=== PATIENT | female | born 1980 | race Hispanic/Latino ===

== ENCOUNTER 2022-07-18 20:24 | Inpatient (IN) | payer OTHER, SELFPAY ==
--- OUTSIDE RECORDS SUMMARY | 2022-07-18 20:26 | XMS REPORT | Continuity of Care Document ---
:1980 Author Organization [facility] t Address [address] [place] [address] Care Team Providers Name Role Phone PatienceRamandeep Jade Attending Clinician Unavailable Adelita Moran Attending Clinician Unavailable Problems This patient has no known problems. Allergies, Adverse Reactions, Alerts This patient has no known allergies or adverse reactions. Medications This patient has no known medications. Procedures This patient has no known procedures. Encounters Start End Encounter Admission Attending Care Care Encounter Source Date/Time Date/Time Type Type Clinicians Facility Department ID 2021-12-26 Outpatient Ramandeep Morin STLMLC STLC [id number] Common 13:24:20 [id number] [facility] 2021-12-26 Outpatient Ramandeep Morin STLC STLC [id number] 2 Common 12:31:34 [id number] [facility] 2021-12-26 Outpatient Dean, STLMLC STLMLC [id number] Common 12:30:24 Adelita [id number] [facility] 2021-12-26 Outpatient Dean, STLMLC STLMLC [id number] Common 12:05:52 Adelita [id number] [facility] 2021-12-26 Outpatient Dean, STLMLC STLMLC [id number] Common 12:05:11 Adelita [id number] [facility] 2021-12-26 Outpatient Dean, STLMLC STLC [id number] Common 12:02:54 Adelita [id number] [facility] 2021-12-26 Outpatient Dean, STLMLC STLMLC [id number] Common 12:01:11 Adelita [id number] [facility] 2021-12-26 Outpatient Dean, STLMLC STLMLC [id number] Common 11:59:50 Adelita [id number] [facility] 2021-12-26 Outpatient Dean, STLMLC STLMLC [id number] Common 11:58:53 Adelita [id number] [facility] 2021-12-26 Outpatient Dean, STLMLC STLMLC [id number] Common 11:56:52 Adelita [id number] [facility] 2021-12-26 Outpatient Dean, STLMLC STLMLC [id number] Common 11:56:23 Adelita [id number] [facility] 2021-12-26 Outpatient Dean, STLMLC STLMLC [id number] Common 11:46:57 Adelita [id number] [facility] 2021-12-26 Outpatient Dean, STLMLC STLMLC [id number] Common 11:46:21 Adelita [id number] [facility] 2021-07-09 2021-07-09 Outpatient STLMLC STLMLC [id number] Common 00:00:00 00:00:00 [facility] 2021-06-11 2021-06-11 Outpatient STLMLC STLMLC [id number] Common 00:00:00 00:00:00 [facility] 2021-01-11 2021-01-11 Outpatient STLMLC STLMLC [id number] Common 00:00:00 00:00:00 [facility] 2020-09-22 2020-09-22 Outpatient STLMLC STLMLC [id number] Common 00:00:00 00:00:00 [facility] 2020-09-22 2020-09-22 Outpatient STLMLC STLMLC [id number] Common 00:00:00 00:00:00 [facility] 2020-09-19 2020-09-19 Outpatient STLMLC STLMLC [id number] Common 00:00:00 00:00:00 [facility] 2020-08-18 2020-08-18 Outpatient Yecenia Witt [id number] Common 10:28:00 10:28:00 t [facility] [address] [facility] 2020-08-18 2020-08-18 Outpatient Yecenia Witt [id number] Common 10:14:00 10:14:[address] [facility] [address] [facility] [address] [facility] Results This patient has no known results.
[2022-07-18] MEDS ORDERED: NA CHLORIDE 0.9% 500 ML ONE (21:02)
[2022-07-18] MEDS ORDERED: DEXTROSE 10%-WATER 500 ML IV ONE (21:29)
[2022-07-18 21:31] LABS: Absolute Lymphocytes (CBC) 0.9 K/uL (0.7-4.9); Hematocrit 39.9 % (36.0-45.0); Lymphocytes % 14.5 % (15.3-44.8); MCV 86.1 fL (80-100); MPV 10.4 fL (7.6-11.3); RBC Red Blood Cell Count 4.63 M/uL (3.86-4.86)
[2022-07-18] MEDS ORDERED: HYDROCORTISONE SUC 100 MG INJ ONE (21:39)
[2022-07-18 21:53] LABS: Albumin 1.8 g/dL (3.4-5.0); Bilirubin Total 0.2 mg/dL (0.2-1.0); Potassium 4.8 mmol/L (3.5-5.1); Protein, Total 7.1 g/dL (6.4-8.2)
[2022-07-18 21:55] LABS: Protime INR 0.92
[2022-07-18 22:06] LABS: Thyroid Stimulating Hormone 5.08 uIU/mL (0.360-3.740)
--- NOTE | 2022-07-18 22:14 | ER ---
Nurse's Notes [facility] Name: Mirian Castro Age: 41 yrs Sex: Female : 1980 Arrival Date: 07/18/2022 Time: 20:33 Bed 8 Private MD: Diagnosis: Acute kidney failure, unspecified;Hypothermia, initial encounter;Altered mental status, unspecified;SARS-associated coronavirus as the cause of diseases classified elsewhere;Acidosis;Hypoglycemia, unspecified Presentation: 07/18 20:33 Chief complaint: EMS states: Patient was found unconscious on scene, FSBS 25. Last time aa9 family recalls her being awake was 0930 today "she was sleeping all day" family states. Family states," She ate breakfast then took 30 U insulin, Has not taken prescribed Lasix in one month.". Coronavirus screen: Vaccine status: Patient reports receiving the 2nd dose of the covid vaccine. Ebola Screen: No symptoms or risks identified at this time. Initial Sepsis Screen: Does the patient meet any 2 criteria? Temp <36.0*C (96.8*F)) or > 38.3*C (100.9*F). Yes Does the patient have a suspected source of infection? Yes:. Risk Assessment: Do you want to hurt yourself or someone else? Patient reports no desire to harm self or others. Onset of symptoms was July 18, 2022 at 09:30. Care prior to arrival: Medication(s) given: 250 ml D10 IV initiated. 20 GA, in the right hand. 20:33 Method Of Arrival: EMS: [facility] aa9 20:33 Acuity: NATALIIA 2 aa9 Triage Assessment: 20:47 General: Appears uncomfortable, unkempt, Behavior is quiet, shaking. Reports chills aa9 for. Pain: Denies pain. Cardiovascular: Reports diaphoresis, "IM cold" skin is cold and clammy upon palpation. Edema is 2+ to left midcalf, left ankle, left foot, left toes, right midcalf, right ankle, right foot and right toes. 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 - Family history:: not pertinent. - Social history:: Smoking status: Patient denies any tobacco usage or history of. - Hospitalizations: : No recent hospitalization is reported. Screenin:31 Abuse screen: Denies threats or abuse. Denies injuries from another. Nutritional aa9 screening: No deficits noted. Tuberculosis screening: No symptoms or risk factors identified. Fall Risk None identified. Assessment: 20:33 General: Appears in no apparent distress. Behavior is calm, cooperative, Reports ha1 feeling dizzy and weak. 20:33 Pain: Denies pain. ha1 20:33 Neuro: Level of Consciousness is awake, alert, obeys commands, Oriented to person, ha1 place, situation, Moves all extremities. Full function Weakness Speech is normal, Reports feeling weak since yesterday morning. Cardiovascular: Heart tones S1 S2 present Capillary refill < 3 seconds Less then three in the upper bilateral extremities.. Edema is 3+ to left lower thigh, left knee, left midcalf, left ankle, left foot, left toes, right lower thigh, right knee, right midcalf, right ankle, right foot and right toes Rhythm is sinus rhythm. Respiratory: Airway is patent Respiratory effort is even, unlabored, Respiratory pattern is regular, symmetrical, Breath sounds are clear bilaterally. GI: Abdomen is non-distended, obese, Bowel sounds present X 4 quads. Reports having diarrhea for the past five days. diarrhea stopped yesterday. Patient currently denies abdominal pain, indigestion. : No signs and/or symptoms were reported regarding the genitourinary system. EENT: No deficits noted. No signs and/or symptoms were reported regarding the EENT system. Derm: Skin is intact, Skin is Skin is pink, warm \\T\\ dry. Musculoskeletal: Circulation, motion, and sensation intact. Range of motion: intact in all extremities. 21:00 General: Appears uncomfortable, Behavior is calm, cooperative. kd3 22:00 Reassessment: Patient and/or family updated on plan of care and expected duration. Pain ha1 level reassessed. Patient is alert, oriented x 3, equal unlabored respirations, skin warm/dry/pink. Patient denies pain at this time. 23:00 Reassessment: Patient and/or family updated on plan of care and expected duration. Pain ha1 level reassessed. Patient is alert, oriented x 3, equal unlabored respirations, skin warm/dry/pink. talking to relatives in the room Patient denies pain at this time. 07/19 01:43 Reassessment: Patient and/or family updated on plan of care and expected duration. Pain ha1 level reassessed. Patient is alert, oriented x 3, equal unlabored respirations, skin warm/dry/pink. 02:27 Reassessment: Patient and/or family updated on plan of care and expected duration. Pain ha1 level reassessed. Patient is alert, oriented x 3, equal unlabored respirations, skin warm/dry/pink. 03:24 Reassessment: Patient and/or family updated on plan of care and expected duration. Pain ha1 level reassessed. Patient is alert, oriented x 3, equal unlabored respirations, skin warm/dry/pink. Vital Signs: 07/18 20:33 BP 210 / 100; Pulse 53; Resp 16 S; Temp 92.9(R); Pulse Ox 100% on R/A; Weight 63.5 kg aa9 (R); Height 5 ft. 0 in. (152.40 cm) (R); Pain 0/10; 21:15 BP 183 / 92; Pulse 52; Resp 12 S; Pulse Ox 100% on R/A; aa9 22:43 BP 162 / 110; Pulse 60; Resp 15; Temp 94.5(R); Pulse Ox 100% on R/A; kd3 23:23 BP 179 / 93; Pulse 57; Resp 14 S; Temp 95.1; Pulse Ox 98% on R/A; aa9 07/19 00:21 BP 197 / 86; Pulse 62; Temp 96.5(R); Pulse Ox 100% on R/A; aa9 01:11 BP 180 / 91; Pulse 62; Resp 14 S; Temp 96.9(R); Pulse Ox 100% on R/A; aa9 02:36 BP 161 / 92; Pulse 60; Resp 13; Temp 97.5; Pulse Ox 99% ; ha1 03:23 BP 159 / 86; Pulse 60; Resp 17; Temp 98; Pulse Ox 100% on R/A; ha1 07/18 20:33 Body Mass Index 27.34 (63.50 kg, 152.40 cm) aa9 ED Course: 07/18 20:33 Patient arrived in ED. aa9 20:33 Angel Albarran MD is Attending Physician. rn 20:47 Triage completed. aa9 20:50 Arm band placed on. aa9 20:50 Warm blanket given. aa9 20:50 Inserted saline lock: 20 gauge in right antecubital area, using aseptic technique. ha1 Blood collected. 21:30 Lety Retana, RN is Primary Nurse. kd3 21:30 bear hugger applied. aa9 21:31 Patient has correct armband on for positive identification. Side rails up X2. Adult w/ aa9 patient. 22:00 Chest Single View XRAY In Process Unspecified. EDMS 22:11 CT Head Brain wo Cont In Process Unspecified. EDMS 22:12 Sudhir Albarran MD is Hospitalizing Provider. rn 07/19 01:45 Slaughter cath inserted, using sterile technique, 16 Fr., by md, balloon inflated, to ha1 gravity drainage. 02:26 Head of bed elevated. ha1 02:33 Assisted to bedside commode. ha1 03:41 No provider procedures requiring assistance completed. Patient admitted, IV remains in ha1 place. Administered Medications: 07/18 20:55 Drug: NS 0.9% 500 ml Route: IV; Rate: bolus; Site: right antecubital; 1 07/19 03:43 Follow up: Rate change 500 ml; IV Status: Completed infusion ha1 07/18 21:21 CANCELLED (Duplicate Order): HydroCORTISONE 100 mg IVP once rn 21:30 Drug: D10 in Water [2 mL/kg] 2 ml/kg Route: IVP; Site: right antecubital; kd3 22:05 Follow up: Response: No adverse reaction; Blood sugar is elevated ha1 21:35 Drug: HydroCORTISONE 50 mg Route: IVP; Site: right antecubital; kd3 22:05 Follow up: Response: No adverse reaction ha1 22:15 Drug: GlucaGen (glucagon) 1 mg Route: IVP; Rate: calculated rate; Site: right kd3 antecubital; 07/19 00:56 Drug: Lasix (furosemide) 40 mg Route: IVP; Site: right antecubital; kd3 01:30 Follow up: Response: No adverse reaction ha1 03:38 Drug: D10 in Water [4ml/kg] 500 ml Route: IVP; Rate: 75 ml/hr; Site: right antecubital; as6 03:42 Follow up: Response: No adverse reaction ha1 Medication: 03:41 VIS not applicable for this client. ha1 Outcome: 07/18 22:13 Decision to Hospitalize by Provider. rn 07/19 03:40 Admitted to ER Hold. Please see [facility] for further documentation. ha1 Condition: stable Instructed on the need for admit, Demonstrated understanding of instructions. 19:53 Admitted to Tele room 417, with chart, Report called to JURGEN Singh lp1 19:53 Condition: stable 19:53 Instructed on the need for admit. 20:12 Patient left the ED. lp1 Signatures: Dispatcher [employer] EDAngel Allen MD MD rn Pena, Laura RN RN lp1 Tariq Roche RN RN as6 Lety Retana RN RN kd3 Tracy Alegria, JURGEN RN aa9 Alona Vivas, JURGEN RN ha1 Corrections: (The following items were deleted from the chart) 07/18 21:54 20:40 Inserted saline lock: 20 gauge in right antecubital area, using aseptic ha1 technique. Blood collected. ha1
--- NOTE | 2022-07-18 22:14 | EDPHYS ---
Physician Documentation [facility] Name: Mirian Castro Age: 41 yrs Sex: Female : 1980 Arrival Date: 07/18/2022 Time: 20:33 Bed 8 Private MD: ED Physician Angel Albarran HPI: 07/18 20:36 This 41 yrs old Female presents to ER via Unassigned with complaints of rn sleepy, low blood sugar. 20:36 Onset: The symptoms/episode began/occurred today. Associated signs and symptoms: rn Pertinent positives: diarrhea, Pertinent negatives: constipation, seizure activity, 20:37 Current symptoms: In the emergency department the patient's symptoms have improved. It rn is unknown whether or not the patient has had similar symptoms in the past. The patient has not recently seen a physician. EMS reports called out for sleepiness, Glucose was in 20s, given glucose in IV and symptoms improved, more alert. Pt reports having diarrhea for 5 days now, non-bloody, has run out of diuretic, if feeling dizzy and weak all over. No headache. No focal neuro complaints. . 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 - Family history:: not pertinent. - Social history:: Smoking status: Patient denies any tobacco usage or history of. - Hospitalizations: : No recent hospitalization is reported. ROS: 20:37 Constitutional: Negative for fever, chills, and weight loss, Eyes: Negative for injury, rn pain, redness, and discharge, ENT: Negative for injury, pain, and discharge, Neck: Negative for injury, pain, and swelling, Cardiovascular: Negative for chest pain, palpitations, and edema, Respiratory: Negative for shortness of breath, cough, wheezing, and pleuritic chest pain, Abdomen/GI: Negative for abdominal pain, nausea, vomiting, and constipation, Back: Negative for injury and pain, : Negative for injury, bleeding, discharge, and swelling, MS/Extremity: Negative for injury and deformity, Skin: Negative for injury, rash, and discoloration, Neuro: Negative for headache, numbness, tingling, and seizure. Exam: 20:40 Constitutional: This is a well developed, well nourished patient who is awake, alert, rn and in no acute distress. Head/Face: Normocephalic, atraumatic. Eyes: Pupils equal round and reactive to light, extra-ocular motions intact. ENT: dry mm Neck: Trachea midline, no thyromegaly or masses palpated, and no cervical lymphadenopathy. Supple, full range of motion without nuchal rigidity, or vertebral point tenderness. No Meningismus. Cardiovascular: Regular rate and rhythm. No pulse deficits. Respiratory: Speaking full sentences, unlabored. No increased work of breathing, no retractions or nasal flaring. Abdomen/GI: Soft, non-tender Skin: Cold body temperature, dry with normal turgor. Normal color with no rashes, no lesions, and no evidence of cellulitis. MS/ Extremity: Pulses equal, no cyanosis. Neurovascular intact. Full, normal range of motion. Equal circumference. 2+ pitting edema bilateral lower ext Neuro: Awake and alert, GCS 15, oriented to person, place, time, and situation. Cranial nerves II-XII grossly intact. Motor strength 5/5 in all extremities. Sensory grossly intact. Cerebellar exam normal. 21:13 ECG was reviewed by the Attending Physician. rn Vital Signs: 20:33 BP 210 / 100; Pulse 53; Resp 16 S; Temp 92.9(R); Pulse Ox 100% on R/A; Weight 63.5 kg aa9 (R); Height 5 ft. 0 in. (152.40 cm) (R); Pain 0/10; 21:15 BP 183 / 92; Pulse 52; Resp 12 S; Pulse Ox 100% on R/A; aa9 22:43 BP 162 / 110; Pulse 60; Resp 15; Temp 94.5(R); Pulse Ox 100% on R/A; kd3 23:23 BP 179 / 93; Pulse 57; Resp 14 S; Temp 95.1; Pulse Ox 98% on R/A; aa9 07/19 00:21 BP 197 / 86; Pulse 62; Temp 96.5(R); Pulse Ox 100% on R/A; aa9 01:11 BP 180 / 91; Pulse 62; Resp 14 S; Temp 96.9(R); Pulse Ox 100% on R/A; aa9 02:36 BP 161 / 92; Pulse 60; Resp 13; Temp 97.5; Pulse Ox 99% ; ha1 03:23 BP 159 / 86; Pulse 60; Resp 17; Temp 98; Pulse Ox 100% on R/A; ha1 07/18 20:33 Body Mass Index 27.34 (63.50 kg, 152.40 cm) aa9 MDM: 07/18 20:33 Patient medically screened. rn 22:11 Differential diagnosis: hypoglycemic episode, hypothyroidism, myxedema coma, rn dehydration, acute kidney failure, COVID. Data reviewed: vital signs, nurses notes, lab test result(s), EKG, and as a result, I will admit patient. Counseling: I had a detailed discussion with the patient and/or guardian regarding: the historical points, exam findings, and any diagnostic results supporting the discharge/admit diagnosis, lab results, the need for further work-up and treatment in the hospital. Response to treatment: the patient's symptoms have mildly improved after treatment, and as a result, I will admit patient. Admission orders: after a detailed discussion of the patient's condition and case, the admit orders are written by me. 07/18 20:35 Order name: CBC with Diff; Complete Time: 22: 07/18 20:35 Order name: Urine Microscopic Only; Complete Time: 23: 07/18 20:35 Order name: CK; Complete Time: 22:33 07/18 20:36 Order name: BNP; Complete Time: 22: 07/18 20:37 Order name: SARS-COV-2 RT PCR (Document "Date of Onset" if Symptomatic); Complete Time: rn 22:07/18 20:40 Order name: Blood Culture Adult (2) 07/18 20:40 Order name: CMP; Complete Time: 22: 07/18 20:40 Order name: Lactate; Complete Time: 22: 07/18 20:40 Order name: Protime (+inr); Complete Time: 22: 07/18 20:40 Order name: Ptt, Activated; Complete Time: 22: 07/18 20:40 Order name: Urine Culture rn 07/18 20:42 Order name: TSH; Complete Time: 22:12 rn 07/18 20:42 Order name: T4 Free; Complete Time: 22:12 rn 07/18 21:27 Order name: Glucose, Ancillary Testing; Complete Time: 21:29 EDFL 07/18 21:48 Order name: Glucose, Ancillary Testing; Complete Time: 22:01 EDMS 07/18 22:01 Order name: Glucose, Ancillary Testing; Complete Time: 22:05 EDFL 07/18 22:41 Order name: Urine Dipstick-Ancillary; Complete Time: 23:18 EDMS 07/18 22:47 Order name: Urine --Ancillary (enter results); Complete Time: 23:18 07/18 23:23 Order name: Glucose, Ancillary Testing; Complete Time: 23:32 EDMS 07/19 00:15 Order name: Glucose, Ancillary Testing; Complete Time: 00:16 EDMS 07/19 01:08 Order name: Glucose, Ancillary Testing EDFL 07/19 02:38 Order name: Glucose, Ancillary Testing EDFL 07/19 03:21 Order name: Glucose, Ancillary Testing EDFL 07/19 03:55 Order name: CBC with Automated Diff EDFL 07/19 04:13 Order name: Glucose, Ancillary Testing EDFL 07/19 04:22 Order name: Comprehensive Metabolic Panel EDFL 07/19 04:22 Order name: Uric Acid EDFL 07/19 04:22 Order name: Creatine Phosphokinase EDFL 07/19 04:22 Order name: Lipid Profile [facility] 07/18 20:35 Order name: IV Start; Complete Time: 21:36 rn 07/18 20:35 Order name: Urine Dipstick-Ancillary (obtain specimen); Complete Time: 22:43 rn 07/18 20:35 Order name: Urine Test (obtain specimen); Complete Time: 22:43 rn 07/18 20:35 Order name: Glucose Level; Complete Time: 21:15 rn 07/18 20:35 Order name: CT Head Brain wo Cont; Complete Time: 22:33 rn 07/18 20:35 Order name: EKG; Complete Time: 20:36 rn 07/18 20:35 Order name: EKG Strip; Complete Time: 21:12 rn 07/18 20:40 Order name: Chest Single View XRAY; Complete Time: 22:33 rn 07/18 20:40 Order name: Cardiac monitoring; Complete Time: 21:11 rn 07/19 04:22 Order name: Thyroid Stimulating Hormone EDMS 07/19 05:35 Order name: Glucose, Ancillary Testing EDMS 07/19 06:15 Order name: Glucose, Ancillary Testing EDMS 07/19 07:33 Order name: US EDMS 07/19 07:52 Order name: Glucose, Ancillary Testing EDMS 07/19 09:28 Order name: Glucose, Ancillary Testing EDMS 07/19 10:46 Order name: Glucose, Ancillary Testing EDMS 07/19 11:37 Order name: Glucose, Ancillary Testing EDMS 07/19 12:35 Order name: Glucose, Ancillary Testing EDMS 07/19 13:17 Order name: Phosphorus EDMS 07/19 13:31 Order name: Glucose, Ancillary Testing EDMS 07/19 13:46 Order name: Vitamin D, 25 (OH), TOTAL EDMS 07/19 13:52 Order name: PTH Intact EDFL 07/19 14:28 Order name: Rheumatoid Factor EDFL 07/19 16:07 Order name: Urinalysis EDFL 07/19 16:24 Order name: Glucose, Ancillary Testing EDMS 07/18 20:40 Order name: EKG - Nurse/Tech; Complete Time: 21:19 rn 07/18 20:40 Order name: IV Saline Lock - Large Bore; Complete Time: 21:36 rn 07/18 20:40 Order name: Labs collected and sent; Complete Time: 21:36 rn 07/18 20:40 Order name: O2 Per Protocol; Complete Time: 21:11 rn 07/18 20:40 Order name: O2 Sat Monitoring; Complete Time: 21:11 rn 07/19 00:24 Order name: Slaughter; Complete Time: 00:42 la1 EC:13 Rate is 53 beats/min. Rhythm is regular. QRS Cummings is Normal. CA interval is normal. QRS rn interval is normal. QT interval is prolonged at 555 msec. No Q waves. T waves are Normal. No ST changes noted. Clinical impression: Sinus bradycardia. Interpreted by me. Reviewed by me. Administered Medications: 20:55 Drug: NS 0.9% 500 ml Route: IV; Rate: bolus; Site: right antecubital; [facility] 07/19 03:43 Follow up: Rate change 500 ml; IV Status: Completed infusion 1 07/18 21:21 CANCELLED (Duplicate Order): HydroCORTISONE 100 mg IVP once rn 21:30 Drug: D10 in Water [2 mL/kg] 2 ml/kg Route: IVP; Site: right antecubital; kd3 22:05 Follow up: Response: No adverse reaction; Blood sugar is elevated ha1 21:35 Drug: HydroCORTISONE 50 mg Route: IVP; Site: right antecubital; kd3 22:05 Follow up: Response: No adverse reaction ha1 22:15 Drug: GlucaGen (glucagon) 1 mg Route: IVP; Rate: calculated rate; Site: right kd3 antecubital; 07/19 00:56 Drug: Lasix (furosemide) 40 mg Route: IVP; Site: right antecubital; kd3 01:30 Follow up: Response: No adverse reaction ha1 03:38 Drug: D10 in Water [4ml/kg] 500 ml Route: IVP; Rate: 75 ml/hr; Site: right antecubital; as6 03:42 Follow up: Response: No adverse reaction ha1 Disposition Summary: 07/18/22 22:13 Hospitalization Ordered Hospitalization Status: Inpatient Admission rn Provider: Sudhir Albarran rn Condition: Stable rn Problem: new rn Symptoms: have improved rn Bed/Room Type: Standard rn Location: Telemetry/MedSurg (Inpatient)(07/19/22 19:15) cg Room Assignment: 417(07/19/22 19:15) cg Diagnosis - Acute kidney failure, unspecified rn - Hypothermia, initial encounter rn - Altered mental status, unspecified rn - SARS-associated coronavirus as the cause of diseases classified elsewhere rn - Acidosis rn - Hypoglycemia, unspecified rn Forms: - Medication Reconciliation Form rn - SBAR form rn Signatures: Dispatcher [employer] EDAngel Allen MD MD rn Attema, Lee, SALMON TROLL FISHER-C SALMON TROLL FISHER-Cla1 Eleanor Vergara, RN RN cg Tariq Roche RN RN as6 Lety Retana, RN RN kd3 Tracy Alegria, RN RN aa9 Alona Vivas, RN RN ha1 Corrections: (The following items were deleted from the chart) 07/18 20:40 20:37 Constitutional: Negative for fever, chills, and weight loss, Cardiovascular: rn Negative for chest pain, palpitations, and edema, Respiratory: Negative for shortness of breath, cough, wheezing, and pleuritic chest pain, Abdomen/GI: Negative for abdominal pain, nausea, vomiting, and constipation, MS/Extremity: Negative for injury and deformity, Skin: Negative for injury, rash, and discoloration, Neuro: Negative for headache, numbness, tingling, and seizure, rn 21:21 21:21 HydroCORTISONE 100 mg IVP once ordered. rn rn 21: 20:36 BASIC METABOLIC PANEL+C.LAB.BRZ ordered. EDMS EDMS 22:41 22:13 Telemetry/MedSurg (Inpatient) rn cg 22:41 22:13 rn cg 23:13 22:41 [facility] ER HOLD cg rn 23:13 22:41 ERHOLD- cg rn 07/19 01:26 07/18 23:13 Intensive Care Unit rn cg 07/19 01:26 07/18 23:13 rn cg 07/19 19:15 01:26 [facility] ER HOLD cg cg 19:15 01:26 ERHOLD- cg cg
--- NOTE | 2022-07-18 22:14 | RAD REPORT ---
EXAM DESCRIPTION: RAD - Chest Single View - 07/18/2022 9:58 pm CLINICAL HISTORY: AMS, hypothermic Chest pain. COMPARISON: No comparisons FINDINGS: Portable technique limits examination quality. Mild interstitial pulmonary edema suspected. The heart appears mildly prominent in size. No displaced fractures. IMPRESSION: Mild CHF versus volume overload pattern.
[2022-07-18 22:19] LABS: Creatine Phosphokinase 668 U/L (26-192); NT PRO-BNP 53385 pg/mL (<125)
--- NOTE | 2022-07-18 22:26 | RAD REPORT ---
EXAM DESCRIPTION: CT - Head Brain Wo Cont - 07/18/2022 10:10 pm CLINICAL HISTORY: dizziness, AMS Headache, drowsiness COMPARISON: No comparisons TECHNIQUE: All CT scans are performed using dose optimization technique as appropriate and may inclu de automated exposure control or mA/KV adjustment according to patient size. FINDINGS: No intracranial hemorrhage, hydrocephalus or extra-axial fluid collection.No areas of brai n edema or evidence of midline shift. The paranasal sinuses and mastoids are clear. The calvarium is intact. IMPRESSION: No acute intracranial abnormality.
[2022-07-18 22:41] LABS: Urine Blood 3+ (Negative); Urine Glucose Trace (Negative); Urine Protein 3+ (Negative)
[2022-07-18 23:02] LABS: Urine Bacteria <20 /HPF (<20); Urine RBC 21-50 /HPF (None Seen)
[2022-07-18 23:03] LABS: Renal Epithelial <5 /HPF (None Seen); Urine Mucus 1+ /HPF (None Seen)
[2022-07-18] MEDS ORDERED: GLUCAGON 1 MG/VIAL ONE (23:22)
[2022-07-18] MEDS ORDERED: WATER FOR INJ,STERILE 10 ML ONE (23:23)
[2022-07-19] MEDS ORDERED: FUROSEMIDE 20 MG/ 2ML VIAL ONE (00:48)
--- NOTE | 2022-07-19 01:05 | P.HP ---
Certification for Inpatient Patient admitted to: Inpatient With expected LOS: >2 Midnights Patient will require the following post-hospital care: None Practitioner: I am a practitioner with admitting privileges, knowledge of patient current condition, hospital course, and medical plan of care. Services: Services provided to patient in accordance with Admission requirements found in Title 42 Section 412.3 of the Code of Federal Regulations <Gorge Buck - Last Filed: 07/19/22 00:56> Patient History Date of Service: 07/19/22 Reason for admission: ARF History of Present Illness: 41-year-old female with history of insulin-dependent diabetes, CKDunknown baseline, hypertension presents to the emergency department for hypoglycemia, AMS. Patient reports she took her normal 30 units of 70/30 insulin this morning and ate a normal amount, she began seeing a medical lab tech instructor Dr. Akers recently and was told her kidney function was "20%". Patient was prescribed Bumex by nephrology, it looks like she was previously on Lasix but has not been taking it for last few months. She was evaluated here in the emergency department her labs were significant for creatinine 6.31 GFR 8 glucose 48 BUN 71 alk phos 123 BNP 53,285 CPK 668 her TSH was 5.08 chest x-ray showed mild overload pattern patient did test positive for COVID as well. She was noted to be hypothermic in the ER with an initial temperature of 92.9 she was placed on a Du hugger her temperature has since improved to 96.5. Will admit to the ICU for now given the need for every hour Accu-Cheks For hyperglycemia. - Past Medical/Surgical History -: Diabetes mellitus type 2insulin-dependent -: CKD -: Hypertension -: none Psychosocial/ Personal History: Lives at home with her children, is unemployed. - Family History Father -: Diabetes Mother -: Diabetes - Social History Smoking Status: Never smoker Alcohol use: No CD- Drugs: No Caffeine use: Yes Place of Residence: Home <Gorge Buck - Last Filed: 07/19/22 00:56> Date of Service: 07/19/22 <Sudhir Albarran - Last Filed: 07/19/22 22:47> Review of Systems 10-point ROS is otherwise unremarkable Respiratory: Shortness of Breath Cardiovascular: Edema <Gorge Buck - Last Filed: 07/19/22 00:56> Physical Examination - Physical Exam General: Alert, In no apparent distress, Oriented x3 HEENT: Atraumatic, PERRLA, Mucous membr. moist/pink, EOMI, Sclerae nonicteric Neck: Supple, 2+ carotid pulse no bruit, No LAD, Without JVD or thyroid abnorm ality Respiratory: Normal air movement, Diminished Cardiovascular: Regular rate/rhythm, Normal S1 S2, Edema (3+pitting edema ROCK LE) Gastrointestinal: Normal bowel sounds, No tenderness Musculoskeletal: No tenderness Integumentary: No rashes Neurological: Normal speech, Normal strength at 5/5 x4 extr, Normal tone, Normal affect Lymphatics: No axilla or inguinal lymphadenopathy - Studies Laboratory Data (last 24 hrs) 07/18/22 21:05: PT 10.1, INR 0.92, APTT 42.4 H 07/18/22 21:05: Sodium 137, Potassium 4.8, BUN 71 H, Creatinine 6.31 H*, Glucose 48 L*, Total Bilirubin 0.2, AST 16, ALT 19, Alkaline Phosphatase 123 H 07/18/22 21:05: WBC 6.50, Hgb 13.3, Hct 39.9, Plt Count 259 07/18/22 20:35: Sodium Cancelled, Potassium Cancelled, BUN Cancelled, Creatinine Cancelled, Glucose Cancelled <Gorge Buck - Last Filed: 07/19/22 00:56> Assessment and Plan - Plan Assessment: ARF superimposed on CKDunknown baseline-suspect CRS Volume overload, peripheral edema, dyspnea suspect underlying CHFunknown EF Diabetes mellitus type 2insulin-dependent with hypoglycemia Hypothermia Hypertension Plan: ARF superimposed on CKDunknown baseline-suspect CRS: Cardiology and nephrology consulted, echo and renal US ordered. Slaughter inserted, IV lasix given. Patient has been on bumex 0.5 daily. Appreciate further input from nephrology. Avoid NSAIDs/contrast/SHABANA/ARB. Pt wsa previously on losartan but states she was taken off of it by nephrology. Volume overload, peripheral edema, dyspnea suspect underlying CHFunknown EF: Echo ordered, cardiology consulted. Continue lasix. Diabetes mellitus type 2insulin-dependent with hypoglycemia: Persistent hypoglycemia, hold long acting insulin. Restart SS when BGL is consistently >200 . Hypothermia: Likely related to ARF and hypoglycemia. no source of infection for sepsis. on Du Hugger, Temp improving. Hypertension: Continue atenolol/home meds. DVT PPX:Heparin Code status:Full code Discharge Plan: Home Plan to discharge in: Greater than 2 days - Advance Directives Does patient have a Living Will: No Does patient have a Durable POA for Healthcare: No - Code Status/Comfort Care Code Status Assessed: Yes (Full code) Critical Care: No Time Spent Managing Pts Care (In Minutes): 70 <Gorge Buck - Last Filed: 07/19/22 00:56> - Plan Patient seen and examined early on rounds. Agree with plan of care as noted above. Appeared stable. glc improved. downgrade to telemetry bed nephrology consulted - will need dialysis general surgery consulted - to place dialysis cath tomorrow <Sudhir Albarran - Last Filed: 07/19/22 22:47>
[2022-07-19] MEDS ORDERED: ONDANSETRON 4 MG/2 ML VIAL IV PRN (01:52)
[2022-07-19] MEDS ORDERED: ACETAMINOPHEN 500 MG TAB PO PRN (01:52)
[2022-07-19] MEDS ORDERED: DEXTROSE 10%-WATER 500 ML IV ONE (03:42)
[2022-07-19 03:52] LABS: Absolute Lymphocytes (CBC) 0.7 K/uL (0.7-4.9); Hematocrit 34.4 % (36.0-45.0); Lymphocytes % 9.5 % (15.3-44.8); MCV 85.7 fL (80-100); MPV 9.7 fL (7.6-11.3); RBC Red Blood Cell Count 4.01 M/uL (3.86-4.86)
[2022-07-19 04:19] LABS: Albumin 1.4 g/dL (3.4-5.0); Bilirubin Total 0.1 mg/dL (0.2-1.0); Potassium 4.7 mmol/L (3.5-5.1); Protein, Total 5.6 g/dL (6.4-8.2); Thyroid Stimulating Hormone 1.63 uIU/mL (0.360-3.740); Uric Acid 5.8 mg/dL (2.6-6.0)
[2022-07-19] MEDS: atenoloL 50 MG TAB PO SCH (06:00)
[2022-07-19] MEDS ORDERED: atenoloL 50 MG TAB ONE (07:31)
--- NOTE | 2022-07-19 07:32 | RAD REPORT ---
EXAM DESCRIPTION: US - Renal Ultrasound-Complete - 07/19/2022 2:58 am CLINICAL HISTORY: arf COMPARISON: No comparisons FINDINGS: Both renal cortices are echogenic. The right kidney measures 11.1 cm. No hydronephrosis, focal mass or perinephric fluid. The left kidney measures 11 cm. No hydronephrosis, focal mass or perinephric fluid. Polypoid mass within the bladder. This measures 4.5 x 2.6 cm. IMPRESSION: 1. No hydronephrosis. 2. Polypoid mass within the bladder could represent a bladder neoplasm. Recommend cystoscopy for furt her evaluation. 3. Echogenic renal cortices may reflect medical renal disease.
[2022-07-19] MEDS ORDERED: HEPARIN 5000 UNIT/ML 1 ML VIAL ONE (08:49)
[2022-07-19] MEDS ORDERED: FUROSEMIDE 40 MG/4 ML VIAL ONE ×2 (08:50→17:05)
[2022-07-19] MEDS: HEPARIN 5000 UNIT/ML 1 ML VIAL SQ SCH (09:00)
[2022-07-19] MEDS ORDERED: FUROSEMIDE 40 MG/4 ML VIAL IV SCH (09:00)
[2022-07-19] MEDS ORDERED: GLUCAGON 1 MG/VIAL IM PRN (10:47)
[2022-07-19] MEDS ORDERED: D50W 25 GM/50 ML SYRINGE IV PRN (10:47)
[2022-07-19] MEDS ORDERED: DEXTROSE 10%-WATER 125 ML IV PRN (10:58)
[2022-07-19] MEDS: INSULIN -REGULAR HUMAN 50 UNIT/0.5 ML ML SQ SCH ×3 (11:30→21:00)
[2022-07-19] MEDS ORDERED: HYDRALAZINE HCL 20 MG/ML VIAL IV PRN (11:36)
[2022-07-19] MEDS ORDERED: INSULIN -REGULAR HUMAN 50 UNIT/0.5 ML ML ONE (11:39)
--- NOTE | 2022-07-19 11:46 | P.CNS ---
Date of Consult: 07/19/22 Reason for Consult: Renal failure Primary Care Provider: Cielo Chief Complaint: ARF History of Present Illness: Pt is a 41-year-old female with history of insulin-dependent diabetes for > 10 years, chronic hypertension on medication and hx of CKD who saw Dr. Akers as a new patient back in January when her Cr level was ~ 3 mg/dl, eGFR 20 ml/min on referral from her PCP, Dr. Varghese. Pt was felt to have developed advanced CKD 2nd to her hx of uncontrolled DM/HTN. Pt was supposed to return for follow up in May but never did so and does not explain why but it appears she may have been apprehensive about being told that she had low renal function and was at risk for dialysis dependence. She has developed increasing peripheral edema over the past two months despite the use of diuretics in the form of HCTZ and loop with Bumex. She reports less UOP recently. She has had fatigue and orthopnea. She has had intermittent nausea. Renal function tests done on presentation to the ER show a significant further decline in eGFR. Allergies No Known Allergies Allergy (Unverified 07/19/22 01:54) - Past Medical/Surgical History -: Diabetes mellitus type 2insulin-dependent -: Advanced CKD seen by Dr. Akers in January -: Hypertension -: none Psychosocial/ Personal History: Lives at home with her children, is unemployed. - Family History Father Medical History: Diabetes Mother Medical History: Diabetes - Social History Alcohol use: No CD- Drugs: No Caffeine use: No Place of Residence: Home Review of Systems General: Other (Fatigue) Eyes: Unremarkable ENT: Unremarkable Respiratory: SOB with Excertion Cardiovascular: Orthopnea, Edema Gastrointestinal: Nausea Genitourinary: Other (Reduced overall UOP) Musculoskeletal: Pedal edema Integumentary: Unremarkable Neurological: Unremarkable Lymphatics: Unremarkable Physical Examination Temp Pulse Resp BP Pulse Ox 98.9 F 69 18 177/85 H 100 07/19/22 08:00 07/19/22 09:00 07/19/22 08:00 07/19/22 09:00 07/19/22 08:00 General: Alert, In no apparent distress, Oriented x3 HEENT: Atraumatic, EOMI Neck: Supple Respiratory: Normal air movement (No rhonchi, scattered rales) Cardiovascular: Regular rate/rhythm, Normal S1 S2 (3+ pittin edema of the LE b/l) Gastrointestinal: Soft and benign (Mild distention), No tenderness Musculoskeletal: No tenderness, Swelling Integumentary: No rashes Neurological: Normal speech, Normal affect Urinary: Nolan catheter Laboratory Data (last 24 hrs) 07/18/22 21:05: PT 10.1, INR 0.92, APTT 42.4 H 07/18/22 21:05: Sodium 137, Potassium 4.8, BUN 71 H, Creatinine 6.31 H*, Glucose 48 L*, Total Bilirubin 0.2, AST 16, ALT 19, Alkaline Phosphatase 123 H 07/18/22 21:05: WBC 6.50, Hgb 13.3, Hct 39.9, Plt Count 259 07/18/22 20:35: Sodium Cancelled, Potassium Cancelled, BUN Cancelled, Creatinine Cancelled, Glucose Cancelled Conclusions/Impression: 1. Abnormal results of kidney function studies 2. Suspected progressive CKD although with rapid loss of GFR in the past 1.5-2 years. Likely now ESRD with eGFR < 10 ml/min. Echogenic kidneys on renal u/s 3. Type II DM with suspected diabetic nephropathy 4. Volume overload 5. Generalized edema 6. Accelerated HTN 7. Metab acidosis 8. Hypocalcemia 9. Microscopic hematuria unspecified -Had long discussion with pt about her apparent progressive CKD and loss of eGFR and need for initiation of dialysis now in the setting of early uremic symptoms and significant volume overload. Pt was hesitant to consider dialysis given fears for fatigue and other symptoms related to dialysis but explained to her in detail the nature of dialysis treatments and the objective to improve her fluid status and symptoms with the treatments. -Can not exclude other primary or secondary glomerulopathies accounting for her more rapid loss of GFR such as FSGS, other but discussed with pt that while a renal biopsy could be performed to investigate etiology of renal failure, it was unlikely to reveal a reversible etiology at this stage. Also discussed risks associated with an invasive kidney biopsy. Will send off serologic w/u however. -Discussed case with Dr. Moran, will plan for TDC placement in AM as opposed to two procedures with temp dialysis catheter placement and conversion later. Pt consents to dialysis catheter placement and HD. -Will cont diuresis with IV lasix currently as pt is non anuric, nolan inserted by ER staff. -Will cont PO meds for BP with Amlodipine and Atenolol ordered by primary team. Will resume ARB once HD initiated, will hold today to avoid hyperkalemia. -Will address azotemia, acidosis and other metab derangements with HD tmrw. There are no life threatening electrolyte abnormalities at this time. -Will check iPTH, Vitamin D level, will place on a Ca based binder and active Vitamin D -Dose meds for reduced CrCl state Thank you for this referral, Chavez Mariano MD, [facility]
[2022-07-19] MEDS: AMLODIPINE 10 MG TAB PO SCH (12:00)
[2022-07-19] MEDS: CALCIUM ACETATE 667 MG TAB PO SCH ×2 (12:00→17:00)
[2022-07-19] MEDS ORDERED: AMLODIPINE 10 MG TAB ONE (13:34)
[2022-07-19 14:28] LABS: Rheumatoid Factor NEG (NEG)
[2022-07-19] MEDS: VITAMIN D 1000 UNIT TAB PO SCH (15:00)
[2022-07-19] MEDS ORDERED: VITAMIN D 1000 UNIT TAB ONE (15:34)
[2022-07-19 16:07] LABS: Urine Bilirubin Negative (Negative); Urine Blood 1+ (Negative); Urine Clarity Clear (Clear); Urine Color Yellow (Yellow); Urine Glucose 1+ (Negative); Urine Protein 3+ (Negative); Urine Urobilinogen 0.2 mg/dL (0.2-1.0)
[2022-07-19 16:19] LABS: Urine Bacteria <20 /HPF (<20); Urine RBC <5 /HPF (None Seen)
[2022-07-19] MEDS: FUROSEMIDE 40 MG/4 ML VIAL IV SCH (17:00)
[2022-07-20] MEDS: FUROSEMIDE 40 MG/4 ML VIAL IV SCH ×3 (00:46→17:16)
[2022-07-20 02:12] VITALS: BMI 29.9
[2022-07-20 04:13] LABS: Absolute Lymphocytes (CBC) 1.9 K/uL (0.7-4.9); Hematocrit 34.4 % (36.0-45.0); Lymphocytes % 24.9 % (15.3-44.8); MCV 87.1 fL (80-100); MPV 9.9 fL (7.6-11.3); RBC Red Blood Cell Count 3.94 M/uL (3.86-4.86)
[2022-07-20 04:32] LABS: Albumin 1.3 g/dL (3.4-5.0); Bilirubin Total 0.2 mg/dL (0.2-1.0); Phosphorus 6.5 mg/dL (2.5-4.9); Potassium 4.3 mmol/L (3.5-5.1); Protein, Total 5.2 g/dL (6.4-8.2)
[2022-07-20] MEDS: atenoloL 50 MG TAB PO SCH (05:24)
--- NOTE | 2022-07-20 06:56 | P.PN ---
Date of Service: 07/20/22 Subjective: Dialysis catheter placed, and tolerated first round of dialysis today Reports feeling okay, leg swelling unchanged ROS: 10 point ROS as noted above, otherwise negative Physical exam GEN: Alert, oriented, NAD CV: Regular rate and rhythm, 3+ bilateral pitting edema in lower extremities to thighs Pulm: Nonlabored respirations on room air ABD: Soft, nontender, nondistended Neuro: Normal speech, normal affect Problem List ARF superimposed on CKDunknown baseline-suspect CRS Volume overload, peripheral edema, dyspnea suspect underlying CHFunknown EF Diabetes mellitus type 2insulin-dependent with hypoglycemia Hypothermia Hypertension ARF superimposed on CKDunknown baseline-suspect CRS Volume overload, peripheral edema, dyspnea suspect underlying CHFunknown EF Cardiology and nephrology consulted echo and renal US ordered. Slaughter inserted, IV lasix given. Patient has been on bumex 0.5 daily. Pt wsa previously on losartan but states she was taken off of it by nephrology workup sent off hepatitis panel sent dialysis social worker contacted to assist in setting up chair time Diabetes mellitus type 2insulin-dependent with hypoglycemia: secondary to worsening renal function insulin held and glc eventually improved continue sliding scale Hypothermia: Likely related to ARF and hypoglycemia. no source of infection for sepsis. resolved Hypertension: Continue atenolol/home meds. VTE: heparin Code: full Dispo: home, ~1-2 days, pending chair time possibly Friday after dialysis Time Spent Managing Pts Care (In Minutes): 35
[2022-07-20] MEDS: CALCIUM ACETATE 667 MG TAB PO SCH ×3 (07:30→17:17)
[2022-07-20] MEDS: AMLODIPINE 10 MG TAB PO SCH (07:30)
[2022-07-20] MEDS: INSULIN -REGULAR HUMAN 50 UNIT/0.5 ML ML SQ SCH ×4 (07:30→20:39)
[2022-07-20] MEDS: CALCITROL 0.25 MCG CAP PO SCH (07:31)
[2022-07-20] MEDS: VITAMIN D 1000 UNIT TAB PO SCH (07:31)
[2022-07-20] MEDS ORDERED: LIDOCAINE 1% MPF 30 ML VIAL ONE (07:36)
[2022-07-20] MEDS ORDERED: NA CHLORIDE 0.9% 100 ML ONE (07:37)
[2022-07-20] MEDS ORDERED: NS 0.9% VIAL 10 ML ONE (07:37)
--- NOTE | 2022-07-20 07:51 | P.CNS ---
Date of Consult: 07/20/22 Reason for consult: Patient needs dialysis History of present illness: 41-year-old female with multiple medical problems presented to the emergency room with hypoglycemia and altered mental status. Patient has a history of chronic renal disease but has gotten worse recently. I was contacted by Dr. Mariano to evaluate the patient for a tunneled catheter placement for dialysis. Patient is COVID-positive but asymptomatic. No sore throat, runny nose, cough, headaches or dizziness, no chest pain and no fever or chills. Review of systems: Otherwise unremarkable Past medical history: Hypertension, diabetes, chronic renal disease Past surgical history: None Allergies: None Social history: Patient does not smoke or drink alcohol Family history: Diabetes Vital signs: Stable, afebrile Physical exam: Awake alert oriented x3 Head and neck exam: Cranial nerves II through XII grossly within normal limits, no neck masses, no JVD, throat clear and neck is supple Chest: Clear Heart: S1-S2 Abdomen: Soft Extremity: Nontender Neuro: Nonfocal Diagnostic data: Laboratory data reviewedpotassium is 4.3, BUN and creatinine are elevated, platelets and INR are within normal limits Assessment: Acute renal failure in a patient with end-stage renal disease Plan/recommendation: We will proceed with placement of a tunneled hemodialysis catheter. Patient understands risks, benefits and alternatives and agrees to procedure. CC: Dr. Mariano's office
[2022-07-20] MEDS ORDERED: NA CHLORIDE 0.9% 500 ML ONE (08:00)
[2022-07-20] MEDS: CEFAZOLIN SODIUM 1 GM/VIAL ONE ×2 (08:29→08:38)
[2022-07-20] MEDS: HEPARIN 5000 UNIT/ML 1 ML VIAL ONE ×2 (08:38→08:39)
--- NOTE | 2022-07-20 08:55 | P.OP ---
Date of Service: 07/20/22 Preop diagnosis: Acute renal failure, end-stage renal disease Postop diagnosis: Same Procedure performed: Placement of right internal jugular Tesio catheter and interpretation of intraoperative fluoroscopy Surgeon: Aguilar Moran MD Edi Manager: None Estimated blood loss: Minimal Specimen: None Findings: Normal anatomy Anesthesia: General Complications: None Drains: None Fluids and blood products: Noncontributory Disposition: Recovery room Operative note: Patient brought to the OR and placed in the supine position. General anesthesia begun. Patient prepped and draped in the usual sterile fashion. Lidocaine 1% infiltrated locally. 18-gauge needle used to access the right internal jugular vein. Guidewire passed and position confirmed with fluoroscopy. A counterincision made on the right anterior chest. Tunneling device used to tunnel the catheter between the 2 wounds. Jugular vein dilated. And then Seldinger technique used. Tip of the catheter placed in the SVC under fluoroscopy. Catheter flushed with heparin and packed with heparin with good blood flow. 3-0 chromic used to approximate subcutaneous tissue and close skin. 3-0 nylon used to secure the catheter to the chest wall. Sterile dressing applied. Patient awakened and taken to recovery room in good general condition. Chest x-ray has been ordered. CC: Dr. Mariano's office
--- NOTE | 2022-07-20 09:28 | RAD REPORT ---
EXAM DESCRIPTION: RAD - Chest Single View - 07/20/2022 9:17 am CLINICAL HISTORY: Status post Tesio catheter placement COMPARISON: Portable July 18 TECHNIQUE: AP portable chest image was obtained 07/20/2022 9:17 am in inspiration and expiration. FINDINGS: Right-sided double-lumen Tessio catheter was placed. There is no pneumothorax. Catheter is well placed with the short arm in the proximal SVC and along the arm in the distal SVC. Heart and va sculature are normal for low lung volume portable imaging. No measurable pleural effusion. No acute b scott abnormality seen. No acute aortic findings suspected. IMPRESSION: Right-sided Tessio catheter placement in good position. No pneumothorax.
[2022-07-20] MEDS: HYDRALAZINE HCL 20 MG/ML VIAL ONE ×2 (09:33→09:44)
[2022-07-20] MEDS: CODEINE 30MG/APAP 300MG TAB PO PRN (19:51)
--- NOTE | 2022-07-20 20:36 | PN ---
Subjective: The patient is seen in room 417. The patient is under COVID precautions, was seen with appropriate protective equipment. The patient currently is alert. Denies any headache, nausea, vomi ting. She feels slightly better after dialysis. Dialysis note reviewed. The patient had dialysis d one at 11:30 a.m. and completed at about 14.05, meaning 2 o'clock, had dialysis for about 2-1/2 hours using the catheter on her neck. The patient tolerated dialysis well. She states she is feeling sli ghtly better after dialysis. Objective: Vital Signs: Her vitals are stable. Blood pressure 108/54, pulse about 70, respirations about 14-16, temperature is afebrile, O2 sats are 96% to 100% on room air. Lungs: Clear. Abdomen: Soft. Extremities: Reveal trace edema. Heart: Sounds are regular. Laboratory Data: Reviewed. As of yesterday, WBC count 7.7, hemoglobin 11.3, hematocrit is 34.4. La bs today show WBC of 7.7, hemoglobin 11.3, hematocrit 34.4, platelet count of 232. Chemistry shows s odium 139, potassium 4.3, chloride 111, bicarb 21, BUN 69, creatinine 6.54. Calcium level was low at about 6, phosphorus at about 6.5, albumin at 1.3. Medications: Reviewed. The patient is on p.r.n. Tylenol. She is on amlodipine, atenolol. She is o n vitamin D with calcitriol. She is also on vitamin D with D3 at 2000 units a day. She i s on furosemide. She is on insulin, Zofran. Assessment And Plan: The patient with chronic kidney disease progressed, not end-stage renal disease , patient on dialysis. Tolerated treatment well today. Has a catheter. Will need outpatient dialys is placement. The patient does not have any insurance she states. She also states that she has not worked, thinks her has worked in the past, not clear if she has appropriate citizenship paper s. At this point, this will be a challenge to get her dialysis placement and scheduled outpatient tr eatments for 3 times a week, which the patient will likely need. I have discussed this with the nurs ing staff on the floor and requested them to consult social organization professor to see if any help can be provided to see this patient can get a place for dialysis going forward. The patient also understands the is norma I have talked to her in Hebrew and she seems to understand what is going on and does seem to be concerned that she does not have insurance and it may become an issue for her to be getting a regular dialysis going forward. /SKY Voice ID: [id number] Report ID: [id number]
[2022-07-20] MEDS: HEPARIN 5000 UNIT/ML 1 ML VIAL SQ SCH (20:38)
[2022-07-21] MEDS: FUROSEMIDE 40 MG/4 ML VIAL IV SCH ×3 (00:26→16:28)
[2022-07-21] MEDS: CODEINE 30MG/APAP 300MG TAB PO PRN (00:39)
[2022-07-21 03:52] LABS: Absolute Lymphocytes (CBC) 1.2 K/uL (0.7-4.9); Hematocrit 34.2 % (36.0-45.0); Lymphocytes % 16.8 % (15.3-44.8); MCV 85.2 fL (80-100); MPV 9.8 fL (7.6-11.3); RBC Red Blood Cell Count 4.02 M/uL (3.86-4.86)
[2022-07-21 04:14] LABS: Albumin 1.3 g/dL (3.4-5.0); Bilirubin Total 0.2 mg/dL (0.2-1.0); Potassium 4.5 mmol/L (3.5-5.1)
[2022-07-21] MEDS: atenoloL 50 MG TAB PO SCH (05:45)
--- NOTE | 2022-07-21 06:08 | P.PN ---
Date of Service: 07/21/22 Subjective: feels ok today, slight discomfort in R neck around tessio otherwise doing ok ROS: 10 point ROS as noted above, otherwise negative Physical exam GEN: Alert, oriented, NAD CV: Regular rate and rhythm, 2+ bilateral pitting edema in lower extremities to thighs Pulm: Nonlabored respirations on room air ABD: Soft, nontender, nondistended Neuro: Normal speech, normal affect nolan in place Problem List ARF superimposed on CKDunknown baseline-suspect CRS Volume overload, peripheral edema, dyspnea suspect underlying CHFunknown EF Diabetes mellitus type 2insulin-dependent with hypoglycemia Hypothermia Hypertension ARF superimposed on CKDunknown baseline-suspect CRS Volume overload, peripheral edema, dyspnea suspect underlying CHFunknown EF Cardiology and nephrology consulted echo and renal US ordered. Nolan inserted in ER Patient has been on bumex 0.5 daily. Pt wsa previously on losartan but states she was taken off of it by nephrology workup sent off hepatitis panel sent web content & social media manager contacted to assist in setting up chair time Diabetes mellitus type 2insulin-dependent with hypoglycemia: secondary to worsening renal function insulin held and glc eventually improved continue sliding scale Hypothermia: Likely related to ARF and hypoglycemia. no source of infection for sepsis. resolved Hypertension: Continue atenolol/home meds. VTE: heparin Code: full Dispo: home, ~1-2 days, pending chair time possibly tomorrow after dialysis Time Spent Managing Pts Care (In Minutes): 35
[2022-07-21] MEDS: INSULIN -REGULAR HUMAN 50 UNIT/0.5 ML ML SQ SCH ×4 (07:30→21:00)
[2022-07-21] MEDS: CALCITROL 0.25 MCG CAP PO SCH (08:02)
[2022-07-21] MEDS: HEPARIN 5000 UNIT/ML 1 ML VIAL SQ SCH ×2 (08:02→21:48)
[2022-07-21] MEDS: AMLODIPINE 10 MG TAB PO SCH (08:03)
[2022-07-21] MEDS: CALCIUM ACETATE 667 MG TAB PO SCH ×3 (08:03→16:29)
[2022-07-21] MEDS: VITAMIN D 1000 UNIT TAB PO SCH (08:04)
--- NOTE | 2022-07-21 09:01 | CON ---
Date of Consultation: 07/19/2022 Reason For Consultation: Acute renal failure and congestive heart failure. History Of Present Illness: Ms. Castro is a 41-year-old history of diabetes, hypertension, and ch ronic renal disease, came in with acute renal failure with a creatinine of 6.23, blood pressure 190/9 4, PND, orthopnea, pedal edema. No chest pain, nausea, vomiting, diaphoresis. Denied any palpitatio ns or syncope. Denied any fever or chills. She sees Dr. Issa as an outpatient. Her chest x-ray s hows CHF. Her BNP was 53,000. Calcium was 5.6. She was COVID positive. Past Medical History: As stated above. Allergies: SHE IS ALLERGIC TO NO MEDICATION. Review of Systems: Negative. Social History: Negative. Family History: Negative. Medications: At home include Norvasc. Physical Examination: Vital Signs: Blood pressure was 190/94. She was in sinus rhythm. HEENT: Negative. Neck: Supple without any bruit, lymphadenopathy. Her stress revealed bilateral rales. Cardiac: Revealed a regular rhythm and rate with an S4 gallops. Abdomen: Benign. Extremities: Revealed 1+ edema. Diagnostic Data: Listed earlier. Impression And Plan: 1.Acute renal failure. 2.Diastolic congestive heart failure, acute. 3.Hypertension, poorly controlled. 4.COVID positive. 5.Hypocalcemia. 6.Elevated BNP. The patient needs to be on Lasix. She is on heparin. She is on atenolol. I think we should conside r adding Norvasc and maybe hydralazine. Obtain Nephrology consultation. Obtain a 2D echocardiogram. We will continue to follow. NORMA/SKY Voice ID: [id number] Report ID: [id number]
--- NOTE | 2022-07-21 09:43 | PN ---
Date of Progress Note: 07/20/2022 Ms. Castro came in with acute renal failure, acute diastolic congestive heart failure, COVID posit aron, creatinine of 6.23, very hypertensive. Chest x-ray showed mild CHF. BNP was elevated. Calcium was low. She is on Lasix, heparin, atenolol. There is a plan to start hemodialysis. Echocardiogra m remains pending at this point. Her last blood pressure was 160/83. She remained in sinus rhythm, remained afebrile, O2 saturation 98% on room air. Her creatinine is now high 5.36. Her last calcium was 7.0. PTH was elevated at 936. Her present regimen includes amlodipine, antibiotics, Lasix, hep olena, hydralazine, and atenolol. I agree with her present regimen. She will eventually need an outp atient Lexiscan to evaluate her coronary artery disease. We will plan for that as an outpatient in a bout a month or so. NORMA/SKY Voice ID: [id number] Report ID: [id number]
[2022-07-22] MEDS: FUROSEMIDE 40 MG/4 ML VIAL IV SCH ×3 (01:20→18:02)
[2022-07-22] MEDS: CODEINE 30MG/APAP 300MG TAB PO PRN (01:26)
[2022-07-22 03:51] LABS: Albumin 1.4 g/dL (3.4-5.0); Bilirubin Total 0.1 mg/dL (0.2-1.0); Potassium 4.1 mmol/L (3.5-5.1); Protein, Total 5.1 g/dL (6.4-8.2)
[2022-07-22 04:46] VITALS: O2SAT 65
[2022-07-22 05:47] LABS: Absolute Lymphocytes (CBC) 1.4 K/uL (0.7-4.9); Hematocrit 32.8 % (36.0-45.0); Lymphocytes % 17.6 % (15.3-44.8); MCV 86.3 fL (80-100); MPV 9.5 fL (7.6-11.3)
[2022-07-22] MEDS: atenoloL 50 MG TAB PO SCH (06:06)
--- NOTE | 2022-07-22 06:58 | ECHO ---
HEIGHT: 5 ft 0 in WEIGHT: 153 lb 8 oz DATE OF STUDY: 07/19/[address]: Gorge Buck NP 2-DIMENSIONAL: YES M.MODE: YES DOPPLER: YES COLOR FLOW: YES TDS: NO PORTABLE: YES DEFINITY: NO BUBBLE STUDY: YES DIAGNOSIS: [*] CARDIAC HISTORY: CATHERIZATION: SURGERY: PROSTHETIC VALVE: PACEMAKER: MEASUREMENTS (cm) DIASTOLIC (NORMALS) SYSTOLIC (NORMALS) IVSd 1.1 (0.6-1.2) LA Diam 4.0 (1.9-4.0) LVEF 52% LVIDd 4.3 (3.5-5.7) LVIDs 3.2 (2.0-3.5) %FS 26% LVPWd 1.3 (0.6-1.2) Ao Diam 2.5 (2.0-3.7) 2 DIMENSIONAL ASSESSMENT: RIGHT ATRIUM: NORMAL LEFT ATRIUM: SMALL ASD RIGHT VENTRICLE: NORMAL LEFT VENTRICLE: NORMAL TRICUSPID VALVE: NORMAL MITRAL VALVE: NORMAL PULMONIC VALVE: NORMAL AORTIC VALVE: NORMAL PERICARDIAL EFFUSION: NONE AORTIC ROOT: NORMAL LEFT VENTRICULAR WALL MOTION: NORMAL DOPPLER/COLOR FLOW: MILD MITRAL AND TRICUSPID REGURGITATION. NORMAL RIGHT VENTRICULAR SYSTOLIC PRESSURE. SMALL ATRIAL SEPTAL DEFECT WITH SALINE BUBBLE STUDY. COMMENTS: SMALL ATRIAL SEPTAL DEFECT. NORMAL LEFT VENTRICULAR EJECTION FRACTION AND SIZE. TRACE PERICARDIAL EFFUSION. MILD MITRAL AND TRICUSPID REGURGITATION. TECHNOLOGIST: Horace COHEN
--- NOTE | 2022-07-22 06:59 | P.PN ---
Date of Service: 07/22/22 Subjective: ROS: 10 point ROS as noted above, otherwise negative Physical exam GEN: Alert, oriented, NAD CV: Regular rate and rhythm, 2+ bilateral pitting edema in lower extremities to thighs Pulm: Nonlabored respirations on room air ABD: Soft, nontender, nondistended Neuro: Normal speech, normal affect nolan in place Problem List ARF superimposed on CKDunknown baseline-suspect CRS Volume overload, peripheral edema, dyspnea suspect underlying CHFunknown EF Diabetes mellitus type 2insulin-dependent with hypoglycemia Hypothermia Hypertension ARF superimposed on CKDunknown baseline-suspect CRS Volume overload, peripheral edema, dyspnea suspect underlying CHFunknown EF Cardiology and nephrology consulted echo and renal US ordered. Nolan inserted in ER Patient has been on bumex 0.5 daily. Pt wsa previously on losartan but states she was taken off of it by nephrology workup sent off hepatitis panel sent psychotherapist social worker contacted to assist in setting up chair time Diabetes mellitus type 2insulin-dependent with hypoglycemia: secondary to worsening renal function insulin held and glc eventually improved continue sliding scale Hypothermia: Likely related to ARF and hypoglycemia. no source of infection for sepsis. resolved Hypertension: Continue atenolol/home meds. VTE: heparin Code: full Dispo: home, ~1-2 days, pending chair time possibly tomorrow after dialysis Time Spent Managing Pts Care (In Minutes): 35
[2022-07-22] MEDS: INSULIN -REGULAR HUMAN 50 UNIT/0.5 ML ML SQ SCH ×3 (07:30→16:30)
--- NOTE | 2022-07-22 08:17 | EKG ---
Test Date: 2022-07-18 Test Time: 21:05:11 Director Software: ANJANA MEASUREMENT RESULTS: Intervals: Rate: 53 WV: 140 QRSD: 78 QT: 592 QTc: 555 [place]: P: 67 WV: 140 QRS: 59 T: 69 INTERPRETIVE STATEMENTS: Sinus bradycardia Low voltage QRS Prolonged QT Abnormal ECG No previous ECG available for comparison Electronically Signed On 07-22-22 08:07:20 CDT by Tray Gaffney
[2022-07-22] MEDS ORDERED: LOSARTAN POTASSIUM 50 MG TABLET PO SCH (09:00)
[2022-07-22] MEDS: CALCITROL 0.25 MCG CAP PO SCH (09:04)
[2022-07-22] MEDS: VITAMIN D 1000 UNIT TAB PO SCH (09:04)
[2022-07-22] MEDS: AMLODIPINE 10 MG TAB PO SCH (09:04)
[2022-07-22] MEDS: CALCIUM ACETATE 667 MG TAB PO SCH ×3 (09:04→18:02)
[2022-07-22] MEDS: HEPARIN 5000 UNIT/ML 1 ML VIAL SQ SCH (09:04)
[2022-07-22 11:54] VITALS: BP 152/72; TEMP 98.4
--- NOTE | 2022-07-22 14:20 | EKG ---
Test Date: 2022-07-18 Test Time: 21:04:22 Fuel Retrofitting Technician: ANJANA MEASUREMENT RESULTS: Intervals: Rate: 52 TN: 148 QRSD: 80 QT: 588 QTc: 546 [place]: P: 59 TN: 148 QRS: 57 T: 102 INTERPRETIVE STATEMENTS: Sinus bradycardia Low voltage QRS Cannot rule out Anterior infarct, age undetermined Prolonged QT Abnormal ECG No previous ECG available for comparison Electronically Signed On 07-22-22 14:19:17 CDT by Victorino Deng
[2022-07-22 21:14] LABS: HBsAG Nonreactive (Nonreactive)
--- NOTE | 2022-07-29 18:56 | P.DS ---
Admission Date: 07/19/22 Discharge Date: 07/22/22 Primary Care Provider: none Disposition: ROUTINE DISCHARGE Discharge Condition: GOOD Reason for Admission: ARF Consultations: Renal - García Akers Brief History of Present Illness: 41-year-old female with history of insulin-dependent diabetes, CKDunknown baseline, hypertension presents to the emergency department for hypoglycemia, AMS. Patient reports she took her normal 30 units of 70/30 insulin this morning and ate a normal amount, she began seeing a service observer Dr. Akers recently and was told her kidney function was "20%". Patient was prescribed Bumex by nephrology, it looks like she was previously on Lasix but has not been taking it for last few months. She was evaluated here in the emergency department her la bs were significant for creatinine 6.31 GFR 8 glucose 48 BUN 71 alk phos 123 BNP 53,285 CPK 668 her TSH was 5.08 chest x-ray showed mild overload pattern patient did test positive for COVID as well. She was noted to be hypothermic in the ER with an initial temperature of 92.9 she was placed on a Du hugger her temperature has since improved to 96.5. Initially admitted to ICU due to the need for q1 hour Accu-Cheks for hyperglycemia. Hospital Course: Problem List Acute worsening of CKDIV, now ESRD Volume overload, peripheral edema, dyspnea due to renal failure Diabetes mellitus type 2insulin-dependent with hypoglycemia Hypothermia Hypertension Patient presented with increased lower extremity swelling and shortness of br eath. She was found to be in renal failure. In addition, she was hypoglycemic. Nephrology was consulted, patient underwent dialysis catheter placement. She was started on hemodialysis during her hospitalization and completed a few rounds, uneventfully. Unfortunately, patient is unable to be set up with scheduled dialysis chair time due to lack of insurance/ability to get insurance at this time. She was instructed on how she would have to presents to the ER when she begins feeling short of breath and starts swelling up again. Discussed that the some ERs may discharge her home without doing dialysis if her electrolytes are not significantly abnormal, but the only way to know would be to go to the ER. Patient expressed understanding. She was deemed stable for discharge home She is to continue all medications as previously prescribed Vitamin D and calcium were added to her regimen. Given her hypoglycemia, her long-acting insulin was held during hospitalization, and she was managed with decent glucose levels with a sliding scale. Recommend significantly decreasing the dose of insulin to avoid hypoglycemic episodes. Patient was previously taking insulin 70/30, 30 units in the morning, 15 units at night Recommend decreasing this to 10 units in the morning and 5 units at night. Can increase the dose by 2 units a day if glucose levels remain over 200 Follow-up with PCP within 1 week Follow-up with nephrology in the next few weeks Vital Signs/Physical Exam: Temp Pulse Resp BP Pulse Ox 98.4 F 63 18 152/72 H 98 07/22/22 11:53 07/22/22 11:53 07/22/22 11:53 07/22/22 11:53 07/22/22 11:53 General: Alert, In no apparent distress, Oriented x3 HEENT: Sclerae nonicteric Neck: Supple Respiratory: Clear to auscultation bilaterally, Normal air movement Cardiovascular: Regular rate/rhythm, Edema (1+ bilateral lower extremities to knees) Gastrointestinal: Soft and benign, Non-distended, No tenderness Musculoskeletal: No contractures, No tenderness Integumentary: No rashes, No significant lesion Neurological: Normal speech, Normal strength at 5/5 x4 extr, Normal affect Laboratory Data at Discharge: WBC 7.90 K/uL (4.3-10.9) 07/22/22 05:25 Hgb 11.0 g/dL (12.0-15.0) L 07/22/22 05:25 Hct 32.8 % (36.0-45.0) L 07/22/22 05:25 Plt Count 236 K/uL (152-406) 07/22/22 05:25 PT 10.1 SECONDS (9.5-12.5) 07/18/22 21:05 INR 0.92 07/18/22 21:05 APTT 42.4 SECONDS (24.3-36.9) H 07/18/22 21:05 Sodium 139 mmol/L (136-145) 07/22/22 03:08 Potassium 4.1 mmol/L (3.5-5.1) 07/22/22 03:08 BUN 56 mg/dL (7-18) H 07/22/22 03:08 Creatinine 6.05 mg/dL (0.55-1.3) H* 07/22/22 03:08 Glucose 211 mg/dL (74-106) H 07/22/22 03:08 Uric Acid 5.8 mg/dL (2.6-6.0) 07/19/22 03:29 Phosphorus 6.5 mg/dL (2.5-4.9) H 07/20/22 03:39 Total Bilirubin 0.1 mg/dL (0.2-1.0) L 07/22/22 03:08 AST 10 U/L (15-37) L 07/22/22 03:08 ALT 11 U/L (12-78) L 07/22/22 03:08 Alkaline Phosphatase 92 U/L (45-117) 07/22/22 03:08 Triglycerides 109 mg/dL (<150) 07/19/22 03:29 Cholesterol 222 mg/dL (<200) H 07/19/22 03:29 HDL Cholesterol 75 mg/dL (40-60) H 07/19/22 03:29 Cholesterol/HDL Ratio 2.96 07/19/22 03:29 Home Medications: Amlodipine [Norvasc*] 10 mg PO DAILY 07/20/22 Atenolol [Tenormin] 100 mg PO DAILY 07/20/22 Bumetanide 1 tab PO DAILY 07/20/22 Furosemide [Lasix*] 40 mg PO BIDL 07/20/22 Gabapentin 300 mg PO DAILY 07/20/22 Losartan/Hydrochlorothiazide [Losartan-Hctz 100-25 mg Tab] 1 each PO DAILY 07/20/22 Calcitrol [Rocaltrol*] 0.5 mcg PO DAILY 30 Days #30 cap 07/22/22 Calcium Acetate [Phoslo*] 667 mg PO TIDWM 30 Days #90 tab 07/22/22 Cholecalciferol (Vitamin D3) [Vitamin D 1000 Iu Tab*] 2,000 unit PO DAILY 30 Days #60 tab 07/22/22 New Medications: Calcium Acetate [Phoslo*] 667 mg PO TIDWM 30 Days #90 tab Calcitrol [Rocaltrol*] 0.5 mcg PO DAILY 30 Days #30 cap Cholecalciferol (Vitamin D3) [Vitamin D 1000 Iu Tab*] 2,000 unit PO DAILY 30 Days #60 tab Physician Discharge Instructions: Patient presented with increased lower extremity swelling and shortness of breath. She was found to be in renal failure. In addition, she was hypoglycemic. Nephrology was consulted, patient underwent dialysis catheter placement. She was started on hemodialysis during her hospitalization and completed a few rounds, uneventfully. Unfortunately, patient is unable to be set up with scheduled dialysis chair time due to lack of insurance/ability to get insurance at this time. She was instructed on how she would have to presents to the ER when she begins feeling short of breath and starts swelling up again. Discussed that the some ERs may discharge her home without doing dialysis if her electrolytes are not significantly abnormal, but the only way to know would be to go to the ER. Patient expressed understanding. She was deemed stable for discharge home She is to continue all medications as previously prescribed Vitamin D and calcium were added to her regimen. Given her hypoglycemia, her long-acting insulin was held during hospitalization, and she was managed with decent glucose levels with a sliding scale. Recommend significantly decreasing the dose of insulin to avoid hypoglycemic episodes. Patient was previously taking insulin 70/30, 30 units in the morning, 15 units at night Recommend decreasing this to 10 units in the morning and 5 units at night. Can increase the dose by 2 units a day if glucose levels remain over 200 Follow-up with PCP within 1 week Follow-up with nephrology in the next few weeks Diet: Renal Activity: Ad samy Followup: Bhavin Akers DO [ACTIVE - CAN ADMIT] - Unknown,U [Primary Care Provider] - Time spent managing pt's care (in minutes): 40
== END 2022-07-22 19:41 | disposition home or self-care (01) | DRG 673 ==
LOC: ER 20:24 → ERHOLD 07-19 00:27 → 4TH 07-19 20:05
PROVIDERS: ADMIT Hospitalist; ATTEND Hospitalist
PROC: 02HV33Z Insertion of Infusion Device into Superior Vena Cava, Percutaneous Approach (ICD-10-PCS; 2022-07-20)
PROC: 5A1D70Z Performance of Urinary Filtration, Intermittent, Less than 6 Hours Per Day (ICD-10-PCS; 2022-07-20)
PROC: 0JH63XZ Insertion of Tunneled Vascular Access Device into Chest Subcutaneous Tissue and Fascia, Percutaneous Approach (ICD-10-PCS; principal; 2022-07-20 08:00)
DX: N17.9 Acute kidney failure, unspecified (principal); U07.1 COVID-19; I50.31 Acute diastolic (congestive) heart failure; E87.2 Acidosis; I13.2 Hypertensive heart and chronic kidney disease with heart failure and with stage 5 chronic kidney disease, or end stage renal disease; N18.6 End stage renal disease; E11.22 Type 2 diabetes mellitus with diabetic chronic kidney disease; E11.649 Type 2 diabetes mellitus with hypoglycemia without coma; E83.51 Hypocalcemia; T50.1X6A Underdosing of loop [high-ceiling] diuretics, initial encounter; R31.9 Hematuria, unspecified; R68.0 Hypothermia, not associated with low environmental temperature; R60.1 Generalized edema; Z79.4 Long term (current) use of insulin; Z56.0 Unemployment, unspecified; Z79.899 Other long term (current) drug therapy; Z91.14 Patient's other noncompliance with medication regimen
CPT/HCPCS: 36415; 51702; 70450; 71045; 76000; 76770; 80053; 80061; 80069; 81001; 81003; 81015; 81025; 82306; 82550; 82947; 83605; 83880; 83970; 84100; 84439; 84443; 84550; 85025; 85610; 85730; 86021; 86038; 86160; 86430; 86704; 86706; 87040; 87086; 87088; 87340; 90935; 93005; 93306; 96361; 96374; 96375; 99285; C1752; J0360; J0690; J1610; J1644; J1720; J1815; J1940; J2405; J7040; U0003